=== PATIENT | male | born 1940 | race Caucasian/White ===

== ENCOUNTER → 2017-01-13 | Outpatient (CLI) | payer OTHER ==
[~2017-01-13] MED LIST: CALCTAB5 PO
[2017-01-13 14:13] LABS: THYROID STIMULATING HORMONE 0.996 uIu/ml (0.300-4.500)
== END | disposition home or self-care (01) ==
LOC: C.LABSPEC 12:28
PROVIDERS: ATTEND Internal Medicine
DX: E03.9 Hypothyroidism, unspecified (principal)

== ENCOUNTER → 2017-10-09 | Outpatient (CLI) | payer OTHER ==
[2017-10-09 13:40] LABS: BASO % 0.3 %; BASO ABS # 0.02 K/uL (0-0.2); COMPLETE YES; EOS % 2.1 %; IG% 0.3 %; LYMPH % 30.5 %; LYMPH ABS # 2.13 K/uL (1.2-3.4); MEAN CELL VOLUME 93.7 fL (80-100); MEAN CORPUSCULAR HEMOGLOBIN 31.8 pg (25-34); MEAN PLATELET VOLUME 12.4 fL (7.4-10.4); MONO % 9.3 %; NEUT % 57.5 %; PLATELET COUNT 164 K/uL (130-400); RED BLOOD COUNT 4.59 M/uL (4.7-6.1); WHITE BLOOD COUNT 6.99 K/uL (4.8-10.8)
[2017-10-09 14:06] LABS: ALT/SGPT 27 U/L (12-78); AST/SGOT 16 U/L (15-37); BLOOD UREA NITROGEN 22 mg/dl (7-18); BUN/CREATININE RATIO 17.8 (10-20); CALCIUM 8.5 mg/dl (8.5-10.1); CARBON DIOXIDE 26 mmol/L (21-32); CHLORIDE 106 mmol/L (98-107); CREATININE 1.22 mg/dl (0.60-1.40); GLUCOSE 93 mg/dl (70-99); POTASSIUM 4.6 mmol/L (3.5-5.1); SODIUM 136 mmol/L (136-145)
[2017-10-09 14:18] LABS: ALB/GLOB RATIO 0.9 (0.9-2); ALKALINE PHOSPHATASE 93 U/L (45-117)
== END | disposition home or self-care (01) ==
LOC: C.LABSPEC 12:31
PROVIDERS: ATTEND Internal Medicine
DX: E03.9 Hypothyroidism, unspecified (principal); R42 Dizziness and giddiness

== ENCOUNTER → 2017-10-10 | Outpatient (CLI) | payer OTHER, MEDICARE ==
--- NOTE | 2017-10-10 14:25 | DIAGNOSTIC IMAGING REPORT ---
ULTRASOUND OF THE CAROTID ARTERIES CLINICAL HISTORY: Dizziness. COMPARISON STUDY: No priors. TECHNIQUE: Real-time, grayscale, and color Doppler sonography of the carotid arteries is performed. Images are reviewed in the transverse and longitudinal planes. FINDINGS: Blood pressure in the right arm measures 143/79 and blood pressure in the left arm measures 142/86. The carotid arteries are patent bilaterally and demonstrate antegrade flow. There is no significant atherosclerotic plaque seen. Normal doppler arterial waveforms are seen throughout. Velocity measurements are listed below. Common carotid peak systolic velocity (cm/sec): RIGHT: 84 LEFT: 82 ICA proximal peak systolic velocity (cm/sec): RIGHT: 58 LEFT: 46 ICA mid peak systolic velocity (cm/sec): RIGHT: 46 LEFT: 53 ICA distal peak systolic velocity (cm/sec): RIGHT: 48 LEFT: 46 ICA/CC peak systolic ratio: RIGHT: 0.7 LEFT: 0.6 Antegrade flow was shown in the vertebral arteries. The external carotid arteries are patent. IMPRESSION: 1. There is no sonographic evidence of hemodynamically significant stenosis in the right or left carotid arterial system. 2. Antegrade flow is shown in the vertebral arteries. Electronically signed by: Gómez Younger M.D. 10/10/2017 2:24 PM Dictated Date/Time: 10/10/2017 2:21 PM
== END | disposition home or self-care (01) ==
LOC: C.ULTR 13:32
PROVIDERS: ATTEND Internal Medicine
DX: R42 Dizziness and giddiness (principal)

== ENCOUNTER → 2018-01-29 | Outpatient (CLI) | payer OTHER, MEDICARE ==
--- NOTE | 2018-01-29 12:18 | DIAGNOSTIC IMAGING REPORT ---
C-SPINE ROUTINE 4 OR 5 VIEWS CLINICAL HISTORY: R SIDED NECK PAIN COMPARISON STUDY: No previous studies for comparison. FINDINGS: Alignment of the cervical spine is anatomic. Vertebral body heights are maintained. There is no fracture or suspicious lesion. There is mild disc space narrowing with moderate osteophytosis at C6-C7. There is moderate multilevel facet arthrosis. IMPRESSION: 1. No cervical spine fracture or subluxation. 2. Moderate multilevel facet arthrosis and mild to moderate multilevel degenerative disc disease. Electronically signed by: Quincy John M.D. 01/29/2018 12:17 PM Dictated Date/Time: 01/29/2018 12:16 PM
== END | disposition home or self-care (01) ==
LOC: C.RAD 11:31
PROVIDERS: ATTEND Internal Medicine
DX: M54.2 Cervicalgia (principal)

== ENCOUNTER 2023-05-02 09:28 | Observation (INO) ==
--- NOTE | 2023-04-09 13:27 | PAT Medication Instructions ---
Medication Instructions Date of Service April 09, 2023 Home Medications ferrous gluconate 324 mg (37.5 mg iron) tablet 324 mg PO QAM gabapentin 100 mg capsule 100 mg PO TID levothyroxine 75 mcg capsule 75 mcg PO QAM omeprazole 20 mg capsule,delayed release 20 mg PO QAM tamsulosin 0.4 mg capsule 0.4 mg PO QAM docusate sodium 50 mg capsule (Stool Softener) 50 mg PO QAM multivitamin 1 tab PO QAM DO NOT take the morning of surgery docusate sodium 50 mg capsule (Stool Softener) 50 mg PO QAM multivitamin 1 tab PO QAM ferrous gluconate 324 mg (37.5 mg iron) tablet 324 mg PO QAM Take morning of surgery With a small sip of water, OTHERWISE NOTHING TO EAT OR DRINK AFTER MIDNIGHT: gabapentin 100 mg capsule 100 mg PO TID levothyroxine 75 mcg capsule 75 mcg PO QAM omeprazole 20 mg capsule,delayed release 20 mg PO QAM tamsulosin 0.4 mg capsule 0.4 mg PO QAM Take evening before surgery gabapentin 100 mg capsule 100 mg PO TID Other Notes If you have any questions please call us at [phone] or [phone] or [phone] or [phone]
--- NOTE | 2023-04-14 09:13 | Anesthesiology Consultation ---
Date of Service April 14, 2023 Assessment & Plan (1) Encounter for pre-operative examination: - COVID screening: Per assessment on 04/14: No known COVID-19 positive contacts or current COVID-19 related symptoms. Travel screen negative. Patient vaccinated. At surgeon discretion if preop Covid testing being done. - Outpatient joint assessment: Pt currently scheduled for inpatient pathway. If surgeon requests review for outpatient joint pathway, patient is not recommended candidate for outpatient joint program from anesthesia standpoint. Chart Review Chart Review: Acceptable Risk for Surgery and Patient seen in Pre Admission Testing Teaching & Discussion Pre-Anesthesia Teaching/Discussion Notes: Instructed NPO after midnight before surgery,except medications with 15 cc of water. Medication instructions provided according to the PAT guidelines. History Surgery Operation Date: 05/02/23 12:30 Proposed Procedures p Left Total Knee Arthroplasty - Fred Del Toro MD Height/Weight Height: 5 ft 11 in Weight: 76 kg Allergies Allergy/AdvReac Type Severity Reaction Status Date / Time No Known Allergies Allergy Verified 04/09/23 12:10 Medications Home Medications Medication Instructions Recorded Confirmed Last Taken ferrous gluconate 324 mg (37.5 mg 324 mg PO QAM 04/26/20 04/09/23 Unknown iron) tablet gabapentin 100 mg capsule 100 mg PO TID 04/26/20 04/09/23 Unknown levothyroxine 75 mcg capsule 75 mcg PO QAM 04/26/20 04/09/23 Unknown omeprazole 20 mg capsule,delayed 20 mg PO QAM 04/26/20 04/09/23 Unknown release tamsulosin 0.4 mg capsule 0.4 mg PO QAM 04/26/20 04/09/23 Unknown docusate sodium 50 mg capsule 50 mg PO QAM 04/09/23 04/09/23 Unknown (Stool Softener) multivitamin 1 tab PO QAM 04/09/23 04/09/23 Unknown Past Medical History Medical History Arthritis BPH (benign prostatic hyperplasia) GERD (gastroesophageal reflux disease) Hypothyroidism Kidney stones Neuropathy feet Osteoarthritis of knees, bilateral Exercise / Class Metabolic Activity III < 4 Walking/Shop/Light housework Past Family History Family History Unknown No pertinent family history Other No family history of adverse response to anesthesia Past Surgical History Surgical History Hx of bilateral cataract extraction Hx of colonoscopy Past Anesthesia History No Hx of Anesthesia Complications and No Family Hx of Anesthesia Complications History of PONV No Hx of PONV and No Hx of Motion Sickness Social History Smoking Status: Never smoker Do You Dip or Chew Tobacco: No Hx Alcohol Use: No Hx Substance Use: No substance use type: does not use Review of Systems Patient denies chest pain, shortness of breath, fever, chills, cough, wheezing, palpitations. Physical Exam Vital Signs VITALS BP 126/77 P 60 TEMP 97.4 SP02 98%RA RESP 16 PHYSICAL Full cervical extension range of motion. Full TMJ range of motion. TMD 3 finger breaths Mallampati Score 3 Dentition: several missing sides/molars Lungs: clear throughout to auscultation Cardiac: regular rate and rhythm, no murmurs noted Spine: normal Carotid arteries: negative bruit Extremities: no LE edema Lab Results Anesthesia Preop Results Results Anesthesia Widget: WBC 6.27 K/ul (4.8-10.8) 04/14/23 Hgb 13.7 g/dl (14.0-18.0) L 04/14/23 Hct 40.2 % (42.0-52.0) L 04/14/23 Plt 152 K/uL (130-400) 04/14/23 Na 137 mmol/L (136-145) 04/14/23 K 4.2 mmol/L (3.5-5.1) 04/14/23 Cl 107 mmol/L (98-107) 04/14/23 CO2 28 mmol/L (21-32) 04/14/23 BUN 28 mg/dl (6-23) H 04/14/23 Creat 1.05 mg/dl (0.6-1.4) 04/14/23 Glucose Level 94 mg/dl (70-99(Fasting)) 04/14/23 PT 10.9 Seconds (9.0-12.0) 04/14/23 PTT 26.6 Seconds (21.0-31.0) 04/14/23 INR 1.0 (0.9-1.1) 04/14/23 Blood Type O Negative 04/14/23 Antibody Screen NEGATIVE 04/14/23 Testing Electrocardiogram Date: 04/14/23 SB at 56bpm. Otherwise normal ECG. No significant change compared to 07/12/2007 per savings counselor comparison. Chest X-Ray Date: 04/14/23 FINDINGS: Cardiomediastinal and hilar silhouettes are within normal limits. No pneumothorax, pleural effusion, airspace consolidation or pulmonary edema. Degenerative changes of the shoulders and spine. IMPRESSION: No acute process. Stress Test Date: 10/28/18 Type: exercise Normal Exercise echocardiogram without evidence of inducible ischemia. Borderline concentric LVH. Grade 1 diastolic dysfunction. RVSP normal. 10.10 METS. 105% MPHR. COVID-19 Risk Screen Screening Information COVID-19 Screen Date: 04/14/23 Exposure 21 Days Family/Household +COVID Last 21 Days: No Exposure 10 Days Any COVID Exposure Last 10 Days: No Symptoms Last 10 Days Experienced COVID Sx Last 10 Days: No + COVID 0-90 Days COVID + in Last 0-90 Days: No
[~2023-05-02 09:28] MED LIST changes: +ACETAMINOPHEN 500 MG TAB PO SCH; +BUPIVACAINE 0.5 % 5 MG/1 ML PF 10ML VIAL ONE; +BUPIVACAINE LIPOSOME/PF 266 MG, BUPIVACAINE/EPINEPHRINE 50 ML, SODIUM CHLORIDE 0.9% PF ... INFIL SCH; -CALCTAB5 PO; +CeleBREX 200 MG CAP PO SCH; +EPINEPHrine INJ 1 MG/ML AMP ONE; +FAMOTIDINE 20 MG TAB PO SCH; +LR 500ML BOLUS, THEN 15ML/HR IV SCH; +LR 60ML/HR IV SCH; +METOCLOPRAMIDE HCL 10 MG TABLET PO SCH; +ROPIVACAINE 0.5% 5 MG/ML 30 ML VIAL ONE; +TRANEXAMIC ACID 1,000 MG **IV Intra-op IV SCH; +ceFAZolin 2000MG 2,000 MG/15 ML SYR IV SCH; +dexAMETHasone**PF** 10 MG/ML VIAL IV SCH
--- NOTE | 2023-05-02 11:13 | History & Physical Bridge Note ---
Date of Service May 02, 2023 History & Physical Bridge Note I have examined the patient, reviewed the History & Physical and in the interval since the performance of the History & Physical I have noted the following changes of clinical significance: no changes noted
[2023-05-02] MEDS ORDERED: ONDANSETRON INJ 2 MG/ML 2 ML VIAL ONE (11:58)
[2023-05-02] MEDS ORDERED: PROPOFOL IV EMULSION 10 MG/ML 20 ML VIAL IV ONE (11:58)
[2023-05-02] MEDS ORDERED: fentaNYL citrate PF 100 MCG/2 ML VIAL ONE (11:59)
[2023-05-02] MEDS ORDERED: MIDAZOLAM HCL 1 MG/ML 2ML VIAL ONE (11:59)
[2023-05-02] MEDS ORDERED: BUPIVACAINE/EPINEPHRINE 0.25% 1:200,000 30 ML VIAL ONE (13:14)
[2023-05-02] MEDS ORDERED: SODIUM CHLORIDE 0.9% PF 50 ML VIAL ONE (13:15)
[2023-05-02] MEDS ORDERED: BUPIVACAINE LIPOSOME 1.3% 266 MG/20 ML VIAL ONE (13:15)
[2023-05-02] MEDS ORDERED: ePHEDrine sulfate 50 MG/ML AMP ONE (13:37)
--- NOTE | 2023-05-02 15:18 | Operative Report ---
PG Post Operative Report Pre & Post Diagnosis Operation Date: 05/02/23 12:00 Pre-Op Diagnosis: Osteoarthritis of Left Knee Post-Op Diagnosis: Osteoarthritis of Left Knee I identified the patient and participated in the time-out.: Yes Procedure Operation Date: 05/02/23 12:00 Actual Procedures p Left Total Knee Arthroplasty(Left) - Fred Del Toro MD Surgeon Fred Del Toro MD Manager Of Medical Farooq Moise PA-C Estimated Blood Loss 50 Findings Consistent with Post-Op Diagnosis Operative [id number] advanced left knee medial and patellofemoral compartment arthritis with grade 4 [id number] disease in both areas. He had a varus deformity to his knee and a moderate-sized knee joint effusion. Specimens Left knee sent for pathology Anesthesia Type Spinal MAC Complications none Disposition Accompanied Patient To Recovery: No Indications Patient is an 83-year-old gentleman said a long history of left knee pain discomfort describes gotten worse over time. Failed conservative measures. X- rays show advanced medial and patellofemoral compartment arthritis. He elected proceed with surgical treatment. Description of Procedure Operative implants consist of: 1. Biomet Vanguard size 72.5 left posterior stabilized femoral component. 2. Biomet size 79 tibial tray. 3. 10 mm posterior stabilized polyethylene insert. 4. 31 x 8 all poly patella. The patient was taken the operating, identified, placed on the operating table supine position. All contractors were appropriately padded. IV antibiotics were provided by anesthesia team. A spinal anesthetic and abductor canal block had provided in the holding area. A left thigh turn was then placed in the left lower extremities then prepped and draped in usual sterile fashion. The left leg was elevated and exsanguinated with use of an Esmarch and the tourniquet was placed at 300 mmHg. An anterior approach left knee was then performed to longitudinal incision centered over the patella. Sharp dissection was carried through subcutaneous tissue down the extensor mechanism. A medial parapatellar arthrotomy incision was made. Some subperiosteal dissection was carried out medially. The fat pad was resected from Neath patella tendon. Lateral patellofemoral ligament was released. Patella subluxated laterally and the knee was flexed. The osteophytes taken off distal femur. The ACL and PCL were then released from distal femur the tibia subluxated anteriorly. The external tibial alignment jig was then placed in the interface the tibia and adjusted 14 mm medially. Proximal tibial cut was made remove about a millimeter or 2 of bone for the most deficient aspect medial tibial plateau. The tibia sized to a size 79. Attention drawn the femur. The distal femur was entered with a sharp drill. The intramedullary canal was suction. A left 5 degree valgus cutting guide was placed. Distal femoral cutting block was pinned in place. The distal femoral cut was made to take an additional 3 mm of bone off distal femur. The femur was then sized to a size 72.5. The AP cutting block was pinned parallel to the epicondylar axis which was 5 degrees of external rotation. The anterior cut, anterior chamfer, posterior cut, posterior chamfer cuts were made. The box cutting guide was placed in a just slight lateral and the box cut was made. The knee was flexed. The remnants of the medial and lateral menisci were excised. The osteophytes taken off the posterior aspect of femur. A trial femoral component was placed. The tibial tray was pinned in maximum external rotation and the drill and stem punch were used to create defect in proximal tibia for the tibial tray. The knee was then trialed and the 10 mm insert fit most appropriately. Attention drawn the patella. The patella was cleaned of all soft tissues. Patella thickness measured 23 mm in thickness was cut down to 14. Was sized to a size 31 patella. The lug holes were drilled for 31 patella. The lateral osteophytes removed. Patella button was placed. Knee was taken through range of motion patella tracked nicely with no thumbs test. Attention drawn to place the permanent components. All trial components were removed. A bone plug was placed in the distal femur limit blood loss. Double batch Palacos G cement was mixed. Biomet Vanguard size 72.5 left posterior stabilized femoral component, a size 79 tibial tray, a 10 mm posterior stabilized polyethylene insert, and a 31 x 8 all poly patella then cemented in place. Knee was brought into full extension till cement hardened. Final cement check was then performed. Pericapsular tissues were injected with total of 100 cc of combination of 20 cc of Exparel, 30 cc normal saline, 50 cc of quarter percent Marcaine with epinephrine. Patient did receive 1 g tranexamic acid. The tourniquet was then let down for final tourniquet time 53 minutes. Hemostasis assured with electrocautery. Extensor mechanism then closed with combination 1 PDS suture #1 Vicryl suture in a [id number]-yq-payve fashion. Extensor mechanism checked found to be intact the subcutaneous tissues then closed with 2 Dexon suture in a buried interrupted fashion skin was closed skin laura. Leg was then cleaned and dried and sterile dressed with Xeroform, 4 x 4's, sterile cast padding, Dane bandage were applied. Patient then transferred to the recovery room in stable condition. Patient tolerated procedure well and there were no complications. Farooq Moise, my physician resident programs assistant, was present for the entire procedure. His assistance was essential and required for appropriate patient positioning, prepping and draping, surgical exposure, performing the technical details of the operation, placement the implants, closure of the wound, and placement of the sterile bandage. I attest to the content of the Intraoperative Record and any orders documented therein. Any exceptions are noted below.
--- NOTE | 2023-05-02 16:35 | Anesthesiology Progress Note ---
Date of Service May 02, 2023 Anesthesia Post Procedure Vital Signs Vital Signs: Temp Pulse Resp BP Pulse Ox O2 Del Method O2 Flow Rate 05/02/23 16:30 36.4 C L 76 14 134/78 93 Room Air 05/02/23 16:20 79 14 133/70 94 Room Air 05/02/23 16:10 75 14 135/70 94 Room Air 05/02/23 16:00 75 14 140/71 94 Room Air 05/02/23 15:50 74 14 131/70 93 Room Air 05/02/23 15:40 84 14 146/84 H 94 Room Air 05/02/23 15:30 88 20 129/64 95 Room Air 05/02/23 15:20 93 H 18 130/72 97 Room Air 05/02/23 15:10 36.0 C L 98 H 18 111/64 95 Oxymask 6 Transfer of Care Handoff Completed per policy Notes Mental Status: alert / awake / arousable Patient Amnestic to Procedure: Yes Nausea / Vomiting: adequately controlled Pain: adequately controlled Airway Patency, RR, SpO2: stable & adequate BP & HR: stable & adequate Hydration State: stable & adequate Neuraxial Anesthesia: was administered and sensory block is resolving Anesthetic Complications: no major complications apparent
[2023-05-02] MEDS ORDERED: ALUMINUM/MAGNESIUM SUSP 30 ML UDC PO PRN (16:47)
[2023-05-02] MEDS ORDERED: HYDROmorphone INJ 0.5 MG/0.5 ML SYR IV PRN (16:47)
[2023-05-02] MEDS ORDERED: bisacodyL 10 MG SUPP PR PRN (16:47)
[2023-05-02] MEDS ORDERED: MAGNESIUM HYDROXIDE SUSP 30 ML UDC PO PRN (16:47)
[2023-05-02] MEDS ORDERED: ONDANSETRON INJ 2 MG/ML 2 ML VIAL IV PRN (16:47)
[2023-05-02] MEDS ORDERED: NALOXONE HCL 0.4 MG/1 ML VIAL/CARP IV PRN (16:47)
[2023-05-02] MEDS ORDERED: METOCLOPRAMIDE HCL INJ 5 MG/ML 2 ML VIAL IV PRN (16:47)
[2023-05-02] MEDS ORDERED: oxyCODONE HCL IR 5 MG TAB (IMMEDIATE RELEASE) PO PRN (16:47)
[2023-05-02] MEDS: SODIUM CHLORIDE 0.9% 1000ML 1,000 ML IV SCH (16:50)
[2023-05-02] MEDS: KETOROLAC TROMETHAMINE 15 MG/ML VIAL IV SCH (17:27)
[2023-05-02] MEDS: ASCORBIC ACID 500 MG TAB PO SCH (17:33)
--- NOTE | 2023-05-02 17:49 | XRay Report ---
TWO VIEWS LEFT KNEE CLINICAL HISTORY: Postoperative examination. FINDINGS: AP and crosstable lateral portable views of the left knee are obtained. A left knee arthrop lasty is in near anatomic alignment. There has been undersurface remodeling of the patella. No acute fracture is seen. There are expected postoperative changes around the knee including skin clips, soft tissue edema, and subcutaneous gas. IMPRESSION: Expected postoperative changes status post left knee arthroplasty. No acute fracture is s een. ACT 112: Negative or not required by law. Electronically signed by: Gómez Younger M.D. 05/02/2023 5:48 PM
[2023-05-02] MEDS: GABAPENTIN 100 MG CAP PO SCH (19:54)
[2023-05-02] MEDS: ASPIRIN 81 MG ECTAB PO SCH (19:54)
[2023-05-02] MEDS: SENNA 8.6 MG TAB PO SCH (19:55)
[2023-05-02] MEDS: ACETAMINOPHEN 500 MG TAB PO SCH (19:55)
[2023-05-02] MEDS: DOCUSATE SODIUM 100 MG CAP PO SCH (19:57)
[2023-05-02] MEDS: ceFAZolin 1000MG 1,000 MG/7.5 ML SYR IV SCH (20:18)
[2023-05-02] MEDS ORDERED: SENNA 8.6 MG TAB PO SCH (21:00)
[2023-05-02] MEDS ORDERED: TRANEXAMIC ACID / 0.7% NACL 1,000 MG/100 ML BAG IV SCH (21:15)
[2023-05-03] MEDS: KETOROLAC TROMETHAMINE 15 MG/ML VIAL IV SCH ×3 (00:10→12:37)
[2023-05-03] MEDS: ceFAZolin 1000MG 1,000 MG/7.5 ML SYR IV SCH (05:39)
[2023-05-03] MEDS: SODIUM CHLORIDE 0.9% 1000ML 1,000 ML IV SCH (06:01)
[2023-05-03 06:15] LABS: Hematocrit (blood only) 34.3 % (42.0-52.0); Hemoglobin 12.1 g/dl (14.0-18.0); Mean Corpuscular Hemoglobin 32.5 pg (25.0-34.0); Mean Corpuscular Hgb Conc 35.3 g/dL (32.0-36.0); Mean Corpuscular Volume 92.2 fL (80.0-100.0); Mean Platelet Volume 12.3 fL (9.4-12.4); Platelet Count 141 K/uL (130-400); RDW Coefficient of Variation 14.5 % (11.5-14.5); RDW Standard Deviation 49.1 fL (36.4-46.3); Red Blood Count 3.72 M/uL (4.70-6.10); White Blood Count 13.76 K/ul (4.8-10.8)
[2023-05-03 06:21] LABS: Calcium 8.6 mg/dl (8.6-10.3); Creatinine Clr Calc Pharmacy 50.5 ml/min; Est GFR (African American) 64.9 ml/min; Potassium 4.3 mmol/L (3.5-5.1)
[2023-05-03] MEDS ORDERED: LEVOTHYROXINE SODIUM 75 MCG TABLET PO SCH (06:30)
[2023-05-03] MEDS ORDERED: dexAMETHasone 10 MG in SYRINGE 0 ML IV SCH (08:00)
[2023-05-03] MEDS: ACETAMINOPHEN 500 MG TAB PO SCH (08:20)
[2023-05-03] MEDS: ASCORBIC ACID 500 MG TAB PO SCH (08:20)
[2023-05-03] MEDS: ASPIRIN 81 MG ECTAB PO SCH (08:21)
[2023-05-03] MEDS: GABAPENTIN 100 MG CAP PO SCH (08:22)
[2023-05-03] MEDS: SENNA 8.6 MG TAB PO SCH (08:23)
[2023-05-03] MEDS: DOCUSATE SODIUM 100 MG CAP PO SCH (08:37)
--- NOTE | 2023-05-03 08:46 | Progress Notes ---
DATE OF SERVICE: 05/03/2023. SUBJECTIVE: An 83-year-old gentleman, postoperative day 1 from left knee replacement. He is doing w ell. Denies any significant pain. He has been getting up and walk around. He is hoping to go home. No chest pain or shortness of breath. Not feeling dizzy or lightheaded. OBJECTIVE: VITAL SIGNS: Temperature 36.8. Vital signs are stable. GENERAL: Shows a pleasant, elderly male. He is sitting on his bedside chair, talking to some family . He is awake, alert and oriented. LUNGS: Clear to auscultation. HEART: Regular rate and rhythm. ABDOMEN: Soft, nontender, nondistended. EXTREMITIES: Grossly neurovascularly intact except as follows. Examination of the left leg reveals the dressing to be clean, dry and intact. He can do a good strai ght leg raise. Range of motion is 0 to about 105 degrees. Moves his leg around very easily. Excell ent control. LABORATORY DATA: Hemoglobin 12.1. Hematocrit 34.3. Electrolytes are stable. ASSESSMENT: An 83-year-old gentleman, postoperative day 1, doing quite well. He is neurologically intact. PLAN: 1. DVT prophylaxis includes thigh-high TEDs, SCDs, and aspirin twice a day. 2. PT/OT, weightbear as tolerated. Left total knee protocol. 3. Pain control, doing well with current pain regimen. 4. Disposition: Plan to discharge to home. He has got some home health. He has done remarkably we ll. Job ID: [id number]
[2023-05-03] MEDS ORDERED: PANTOprazole 40 MG TAB PO SCH (09:00)
[2023-05-03] MEDS ORDERED: MULTIVITAMIN TAB PO SCH (09:00)
[2023-05-03] MEDS ORDERED: DOCUSATE SODIUM 100 MG CAP PO SCH (09:00)
[2023-05-03] MEDS ORDERED: TAMSULOSIN HCL 0.4 MG CAP PO SCH (09:00)
[2023-05-03] MEDS ORDERED: NON-FORMULARY MEDICATION (Multivitamin Tablet) PO SCH (09:00)
[2023-05-03] MEDS ORDERED: FERROUS GLUCONATE 324 MG TAB PO SCH (09:00)
== END 2023-05-03 13:34 | disposition home health service (06) ==
LOC: 3E 09:28 → ASU 09:28

== ENCOUNTER 2023-12-02 09:41 | Observation (INO) ==
--- NOTE | 2023-11-19 14:07 | Anesthesiology Consultation ---
Date of Service November 19, 2023 Assessment & Plan (1) Encounter for pre-operative examination: Chart Review Chart Review: Acceptable Risk for Surgery and Patient NOT seen in Pre Admission Testing - Patient is NOT an ideal OPJ candidate -Infectious Disease screening: Per PAT nursing assessment on 11/19/23. No known infectious disease contacts in past 10 days or current infectious disease symptoms. No recent travel outside the country. Left TKA 05/02/23= Done under SAB at L3-4 with 1 attempt. History Surgery Operation Date: 12/02/23 13:10 Proposed Procedures p Right Total Knee Arthroplasty - Fred Del Toro MD Height/Weight Height: 5 ft 11 in Weight: 78.018 kg Allergies Allergy/AdvReac Type Severity Reaction Status Date / Time amoxicillin AdvReac Mild Diarrhea Verified 11/19/23 13:08 Medications Home Medications Medication Instructions Recorded Confirmed Last Taken ferrous gluconate 324 mg (37.5 mg 324 mg PO QAM 04/26/20 11/19/23 05/01/23 12:00 iron) tablet gabapentin 100 mg capsule 100 mg PO TID 04/26/20 11/19/23 05/02/23 06:00 1 tab levothyroxine 75 mcg capsule 75 mcg PO QAM 04/26/20 11/19/23 05/02/23 06:00 omeprazole 20 mg capsule,delayed 20 mg PO QAM 04/26/20 11/19/23 05/02/23 06:00 release tamsulosin 0.4 mg capsule 0.4 mg PO BID 04/26/20 11/19/23 05/02/23 06:00 docusate sodium 50 mg capsule 50 mg PO QAM 04/09/23 11/19/23 05/01/23 06:00 (Stool Softener) multivitamin 1 tab PO QAM 04/09/23 11/19/23 05/01/23 06:00 Wheeled Walker #1 ea 05/09/23 Unknown Past Medical History Medical History Neuropathy feet BPH (benign prostatic hyperplasia) Hypothyroidism GERD (gastroesophageal reflux disease) Osteoarthritis of knees, bilateral Kidney stones Arthritis Past Family History Family History Unknown No pertinent family history Other No family history of adverse response to anesthesia Past Surgical History Surgical History (Updated 11/19/23 @ 14:05 by Sonya Golden PA-C) History of total left knee replacement (TKR) Left TKA 05/02/23= Done under SAB at L3-4 with 1 attempt. Hx of bilateral cataract extraction Hx of colonoscopy Social History Smoking Status: Never smoker Do You Dip or Chew Tobacco: No Hx Alcohol Use: No Hx Substance Use: No substance use type: does not use Lab Results Anesthesia Preop Results Results Anesthesia Widget: WBC 8.32 K/ul (4.8-10.8) 11/05/23 Hgb 14.0 g/dl (14.0-18.0) 11/05/23 Hct 41.6 % (42.0-52.0) L 11/05/23 Plt 152 K/uL (130-400) 11/05/23 Na 138 mmol/L (136-145) 11/05/23 K 4.1 mmol/L (3.5-5.1) 11/05/23 Cl 105 mmol/L (98-107) 11/05/23 CO2 27 mmol/L (21-32) 11/05/23 BUN 23 mg/dl (6-23) 11/05/23 Creat 1.05 mg/dl (0.6-1.4) 11/05/23 Glucose Level 89 mg/dl (70-99(Fasting)) 11/05/23 PT 11.1 Seconds (9.0-12.0) 11/05/23 PTT 29 Seconds (21-31) 11/05/23 INR 1.0 (0.9-1.1) 11/05/23 Blood Type O Negative 11/05/23 Antibody Screen NEGATIVE 11/05/23 Testing Electrocardiogram Date: 04/14/23 SB at 56bpm. Otherwise normal ECG. No significant change compared to 07/12/2007 per c web developer comparison. Chest X-Ray Date: 04/14/23 FINDINGS: Cardiomediastinal and hilar silhouettes are within normal limits. No pneumothorax, pleural effusion, airspace consolidation or pulmonary edema. Degenerative changes of the shoulders and spine. IMPRESSION: No acute process. Stress Test Date: 10/28/18 Type: exercise Normal Exercise echocardiogram without evidence of inducible ischemia. Borderline concentric LVH. Grade 1 diastolic dysfunction. RVSP normal. 10.10 METS. 105% MPHR.
--- NOTE | 2023-11-28 14:49 | History & Physical Report ---
Date of Service November 28, 2023 Assessment & Plan (1) Osteoarthritis of right knee: 83-year-old gentleman status post left knee replacement with the right knee DJD. He is failed conservative measures. He is happy with the left knee and would like to have his right knee replaced. He does have primarily patellofemoral arthritis which is a little bit less predictably treated with knee replacement. Plan: We discussed treatment options. He is happy with his left knee. He like to proceed with right knee replacement. Will take the operative right total knee replacement for the risks Mente this procedure planed the patient and include but not limited to deep VT, PE, NH, , infection, need for further surgery in future, incomplete relief of symptoms etc. The patient understands and desires to proceed. Informed consent was obtained. He is hoping to do this after . He does have a trip coming up in January they be better for her. Will do our best to get him better by then. Plan on DVT prophylaxis including thigh-high teds, SCDs, aspirin twice a day. (2) Status post total left knee replacement: History of Present Illness Chief Complaint: . Persistent right knee pain and discomfort. Primary Care Provider: Fran Ge MD . Patient is an 83-year-old gentleman who presents for follow-up of his knees. He is now about 7 months out from a left knee replacement doing well. He continues to be bothered by right knee pain and discomfort. Describes global pain. The more he is up and onto more it hurts. He is having more more difficulty doing things he enjoys like hunting up. He has an upcoming trip in January and he like to have his knee better by then. Describes global pain. Does swells more as the day goes on. Some nighttime discomfort. Allergies Allergy/AdvReac Type Severity Reaction Status Date / Time amoxicillin AdvReac Mild Diarrhea Verified 11/19/23 13:08 Home Medications Medication Instructions Recorded Confirmed Type ferrous gluconate 324 mg (37.5 mg 324 mg PO QAM 04/26/20 11/19/23 History iron) tablet gabapentin 100 mg capsule 100 mg PO TID 04/26/20 11/19/23 History levothyroxine 75 mcg capsule 75 mcg PO QAM 04/26/20 11/19/23 History omeprazole 20 mg capsule,delayed 20 mg PO QAM 04/26/20 11/19/23 History release tamsulosin 0.4 mg capsule 0.4 mg PO BID 04/26/20 11/19/23 History docusate sodium 50 mg capsule 50 mg PO QAM 04/09/23 11/19/23 History (Stool Softener) multivitamin 1 tab PO QAM 04/09/23 11/19/23 History Wheeled Walker #1 ea 05/09/23 Rx Past Med/Surg History Medical History Neuropathy feet BPH (benign prostatic hyperplasia) Hypothyroidism GERD (gastroesophageal reflux disease) Osteoarthritis of knees, bilateral Kidney stones Arthritis Surgical History History of total left knee replacement (TKR) Left TKA 05/02/23= Done under SAB at L3-4 with 1 attempt. Hx of bilateral cataract extraction Hx of colonoscopy Family History Unknown No pertinent family history Other No family history of adverse response to anesthesia Social History Smoking Status: Never smoker Second Hand Exposure: No; Do You Dip or Chew Tobacco: No; Tobacco Cessation Education Requested by Patient: No Hx Alcohol Use: No Hx Substance Use: No Preferred Language: Honduran Communication Ability: Effective Email Marketing Manager Required: No Beliefs That Will Affect Care: None marital status: Current Living Situation: Spouse current occupational status: retired Other Information That Helps Us Care for You: No Feels Safe at Home: Yes Safety Concerns: Feels Safe At This Time Assistive Devices: Glasses Review of Systems All systems reviewed & are unremarkable except as noted in HPI & below. Physical Exam . Physical examination reveals a pleasant elderly male. Looks younger than his stated age. Examination of both knees with patient ambulates independently. Examination of the right knee reveals a fairly neutral alignment to his knee. Small knee effusion. Range of motion 0-1 25. No pain with hip motion. Does have some patellofemoral crepitance. Examination left knee reveals a well-healed incision. Knee alignment is anatomic. Mild swelling through range of motion 0-1 20. No instability. Constitutional WD/WN, vitals as above Neck trachea midline, no thyromegaly Respiratory normal respiratory effort, lungs clear to auscultation Cardiovascular RRR, no murmur, no edema Gastrointestinal (Abdomen) normal bowel sounds, soft, nontender, no hepatosplenomegaly Results & Data Results & Data Laboratory Results . Diagnostic Findings . X-rays of the right knee were reviewed. It shows moderate to advanced lateral compartment arthritis. He is got advanced patellofemoral disease. PG Care Time/CCT Total # of Minutes Spent Total Time Spent with Patient: Total time spent is greater than 50% in coordination of care (as documented) at patient's floor/unit and/or counseling patient: Coding Level of Care Code None Diagnoses Osteoarthritis of right knee M17.11 Status post total left knee replacement Z96.652
[~2023-12-02 09:41] MED LIST changes: +BUPIVACAINE 0.25% PF 30 ML VIAL ONE; -EPINEPHrine INJ 1 MG/ML AMP ONE; -ROPIVACAINE 0.5% 5 MG/ML 30 ML VIAL ONE; -dexAMETHasone**PF** 10 MG/ML VIAL IV SCH
[2023-12-02] MEDS ORDERED: BUPIVACAINE LIPOSOME 1.3% 266 MG/20 ML VIAL ONE (09:46)
[2023-12-02] MEDS ORDERED: BUPIVACAINE/EPINEPHRINE 0.25% 1:200,000 30 ML VIAL ONE (09:47)
[2023-12-02] MEDS ORDERED: SODIUM CHLORIDE 0.9% PF 50 ML VIAL ONE (09:48)
[2023-12-02] MEDS ORDERED: MIDAZOLAM HCL 1 MG/ML 2ML VIAL ONE (09:59)
[2023-12-02] MEDS ORDERED: fentaNYL citrate PF 100 MCG/2 ML VIAL ONE (09:59)
[2023-12-02] MEDS ORDERED: ONDANSETRON INJ 2 MG/ML 2 ML VIAL IV PRN ×2 (10:43→16:56)
[2023-12-02] MEDS ORDERED: ATROPINE SULFATE 0.1 MG/ML 10ML SYR IV PRN (10:43)
[2023-12-02] MEDS ORDERED: fentaNYL citrate PF 100 MCG/2 ML VIAL IV PRN (10:43)
[2023-12-02] MEDS ORDERED: ePHEDrine sulfate 50 MG/ML AMP IV PRN (10:43)
--- OUTSIDE RECORDS SUMMARY | 2023-12-02 11:53 | External Medical Summary | Continuity of Care Document ---
Author Name Unknown Organization [facility] [address] [facility] [address] [id number] Care Team Providers Care Supervisor Grading Name Role Phone Fran Ge Primary Care Physician [phone] Encounter [facility] [phone] Date(s): 11/20/23 - 11/20/23 [facility] [address] [facility] [address] [phone] Encounter Diagnosis AK (actinic keratosis)(Discharge Diagnosis) - 11/20/23 Seborrheic keratoses(Discharge Diagnosis) - 11/20/23 Compound nevus of multiple sites of trunk(Discharge Diagnosis) - 11/20/23 Asteatosis cutis(Discharge Diagnosis) - 11/20/23 Discharge Disposition: Home or Self Care Attending Physician: MD Connors Thomas A Allergies, Adverse Reactions, Alerts No Known Medication Allergies Substance Reaction Severity Status Hay sneezing Itchy eyes Nasal congestion Active Assessment and Plan Extracted from: Title:Clinical Document Author:MD Dory, Jere Khalil Date:11/20/23 OUTPATIENT NOTE Name: JONI HODGES Jr. Patient Number:1 [id number] : 1940 Date of Service: 11/20/2023 _ Joni Donaldo returns for reevaluation. 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 This continues to be more problem in the winter than in the summer. An actinic keratosis is noted in the presternal area near the sternal notch and was treated with cryotherapy as an actinic keratosis with liquid nitrogen with patient consent. Side effects were discussed. Review of systems medications allergies as noted on the chart. The patient is in stable health. He will be going for knee replacement surgery for the right knee next month. Examination reveals pleasant well-nourished white male type II skin is alert and oriented x 3 with normal mood and affect. Examination of the scalp, head, neck, back, chest, arms, hands, fingers, abdominal area, legs, feet, and toes reveals numerous seborrheic keratoses particularly on the trunk and chest which do not appear atypical, asteatotic change on the arms and legs, otherwise unremarkable. The patient will return in 6 months for reevaluation. Immunizations Given and Recorded Vaccine Date Status Refusal Reason influenza virus vaccine, inactivated 10/30/23 Foreign rded influenza virus vaccine, inactivated 10/21/22 Give n SARS-CoV-2 (COVID-19) mRNA BNT-162b2 vax 1 01/29/21 Recorded SARS-CoV-2 (COVID-19) mRNA BNT-162b2 vax 2 01/08/21 Recorded 1Result Comment: 2022-04-25: Historical information-source unspecified 2Result Comment: 2022-04-25: Historical information-source unspecified Medications Colace Start: 10/30/23 10:30:00 EST, 100 mg =, PO, bid Start Date: 10/30/23 Status: Ordered ferrous gluconate 324 mg (38 mg elemental iron) oral tablet Start: 04/06/13 14:17:00 EDT, 1 tab, PO, several x week Start Date: 04/06/13 Status: Ordered gabapentin 100 mg oral capsule Start: 06/17/23 9:19:00 EDT, See Instructions, Disp# 540 cap, Refills: 3, TAKE 2 CAPSULES BY MOUTH 3 TIMES DAILY, Pharmacy: [facility] ([facility]) Start Date: 06/17/23 Status: Ordered hydrocortisone 2.5% topical cream Start: 02/19/22 8:38:00 EDT, See Instructions, Disp# 60 g, Refills: 2, apply to left thigh until clear, Brand Medically Necessary, Pharmacy: [facility]/pharmacy #[id number] Start Date: 02/19/22 Status: Ordered levothyroxine 75 mcg (0.075 mg) oral tablet Start: 02/21/23 15:09:00 EDT, See Instructions, Disp# 90 tab, Refills: 3, TAKE 1 TABLET BY MOUTH DAILY, Pharmacy: [facility] ([facility]) Start Date: 02/21/23 Status: Ordered multivitamin Start: 02/19/22 8:07:00 EDT, 1 tab, PO, Daily Start Date: 02/19/22 Status: Ordered omeprazole 20 mg oral delayed release capsule Start: 09/08/23 13:04:00 EDT, 1 cap, PO, Daily, Disp# 90 cap, Refills: 4, Pharmacy: [facility] ([facility]) Start Date: 09/08/23 Status: Ordered tamsulosin 0.4 mg oral capsule Start: 07/21/23 8:42:00 EDT, See Instructions, Disp# 180 cap, Refills: 3, TAKE 2 CAPSULES BY MOUTH DAILY, Pharmacy: [facility] ([facility]) Start Date: 07/21/23 Status: Ordered Tylenol Start: 05/28/23 11:27:00 EDT Start Date: 05/28/23 Status: Ordered Vitamin C 500 mg oral tablet Start: 11/30/14 9:59:00, 1 tab, PO, Daily, PRN: Sore Throat Start Date: 11/30/14 Status: Ordered Mental Status 11/20/23 Barriers to Learning one year None evide nt Mandatory Health Literacy Documentation Yes Health Literacy Communication Barriers N ever Primary Language Norwegian Problem List Condition Confirmation Course Effective Dates Status H ealth Status Informant Arthritis of right wrist Confirmed Active Asteatosis Confirmed Active Basal cell carcinoma of skin Confirmed Active BPH without urinary obstruction Confirmed Active GERD Confirmed Active H/O: neoplasm Confirmed Active Hypothyroidism Confirmed Active Neuropathy, peripheral, idiopathic Confirmed Active Iron deficiency anemia Confirmed Active 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 SK (seborrheic keratosis) Confirmed Active Diagnosis Diagnosis Type Effective Dates Health Status Clinical Service Informant AK (actinic keratosis) Discharge Diagnosis 11/20/23 Seborrheic keratoses Discharge Diagnosis 11/20/23 Compound nevus of multiple sites of trunk Discharge Diagnosis 11/20/23 Asteatosis cutis Discharge Diagnosis 11/20/23 Procedures Procedure Date Related Diagnosis Body Site Status Left knee 1 05/01/23 Completed Shave biopsy 2 08/28/22 Completed Colonoscopy 3 07/25/22 Completed Shave biopsy and cauterisati on of skin 4 11/27/18 Completed Shave biopsy and cauterization of skin 07/29/17 Completed Shave biopsy and cauterization of skin 05/02/16 Completed 1total replacement 2right ear lobe 3COLO to TI, 5 mm SF polyp CS, hemorrhoids, 4right extensor forearm Social History Social History Type Response Smoking Status Never smoked cigaret mikel Sex Male Outpatient Note * MD Dory, Gabe Khalil: PERFORM, MODIFY Event Display: .Outpt Note Authored Date: OUTPATIENT NOTE Name: JONI HODGES Jr. Patient Number:1 [id number] : 1940 Date of Service: 11/20/2023 _ Joni Hodges returns for reevaluation. 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 This continues to be more problem in the winter than in the summer. An actinic keratosis is noted in the presternal area near the sternal notch and was treated with cryotherapy as an actinic keratosis with liquid nitrogen with patient consent. Side effects were discussed. Review of systems medications allergies as noted on the chart. The patient is in stable health. He will be going for knee replacement surgery for the right knee next month. Examination reveals pleasant well-nourished white male type II skin is alert and oriented x 3 with normal mood and affect. Examination of the scalp, head, neck, back, chest, arms, hands, fingers, abdominal area, legs, feet, and toes reveals numerous seborrheic keratoses particularly on the trunk and chest which do not appear atypical, asteatotic change on the arms and legs, otherwise unremarkable. The patient will return in 6 months for reevaluation. Electronic Signature on File Electronically Reviewed/Signed by: Gabe Connors MD Author Signature Dt/Tm:11/20/2023 02:15 PM Department of Dermatology [facility] Patient Care team information Care Team Personnel Name: MD Ge [facility] Position: Physician - Family Med Member Role: Primary Care Provider Address: Address: [address] [address] Name: Anders David Position: HIS Supervisor_P Member Role: HIS Lifetime Care Team Related Persons Name: CECY HODGES Address: home [address] [place] [phone]
--- NOTE | 2023-12-02 12:04 | History & Physical Bridge Note ---
Date of Service December 02, 2023 History & Physical Bridge Note I have examined the patient, reviewed the History & Physical and in the interval since the performance of the History & Physical I have noted the following changes of clinical significance: no changes noted
[2023-12-02] MEDS ORDERED: PROPOFOL IV EMULSION 10 MG/ML 20 ML VIAL IV ONE ×2 (12:26→12:31)
[2023-12-02] MEDS ORDERED: ePHEDrine sulfate 50 MG/5 ML SYR ONE (12:44)
--- NOTE | 2023-12-02 14:16 | Operative Report ---
PG Post Operative Report Pre & Post Diagnosis Operation Date: 12/02/23 11:10 Pre-Op Diagnosis: Right Knee Degenerative Joint Disease Post-Op Diagnosis: Right Knee Degenerative Joint Disease I identified the patient and participated in the time-out.: Yes Procedure Operation Date: 12/02/23 11:10 Actual Procedures p Right Total Knee Arthroplasty(Right) - Fred Del Toro MD Surgeon Fred Del Toro MD Central Office Repairer Supervisor Farooq Moise PA-C Estimated Blood Loss 50 Findings Consistent with Post-Op Diagnosis Operative findings reveal advanced right knee DJD. He had extensive grade 4 onow-zi-recl disease in the patellofemoral compartment. He had less severe full-thickness cartilage loss in the lateral compartment. The medial compartment pretty well spared with some age-related changes. Moderate-sized joint effusion. Slight valgus alignment to his knee. Specimens Right knee sent for pathology Anesthesia Type Spinal MAC Complications none Disposition Accompanied Patient To Recovery: No Indications Patient is an 83-year-old gentleman said a long history of bilateral knee pain discomfort describes gotten worse over time. They have been through extensive conservative treatments became less successful. He underwent a left knee replacement about 7 months ago and is done well from this. Continued be limited by right knee pain discomfort. X-rays show advanced patellofemoral and lateral compartment arthritis. He elected proceed with total knee arthroplasty. Description of Procedure Operative implants consist of: 1. Biomet Vanguard size 72.5 right posterior stabilized femoral component. 2. Biomet size 79 tibial tray. 3. 10 mm pro stabilized polyethylene insert. 4. 31 x 8 all poly patella. The patient was taken the operative room, identified, and placed on the operating table in supine position but all contact areas were properly padded. IV antibiotic 5 by anesthesia team. Spinal anesthetic and adductor canal block had been provided in the holding area. Right Tetrick was then placed. The right lower extremities then prepped draped in usual sterile fashion. The right leg was elevated exsanguinated with use of an Esmarch and tourniquet placed at 300 mmHg. An anterior approach to the right knee was then performed to longitudinal incision centered over the patella. Sharp dissection Subcutaneous Tissue down the Extensor Mechanism. A Medial Parapatellar Arthrotomy Incision Was Made. Some Subperiosteal Dissection Was Carried out Medially. The Fat Pad Was Dissected from Neath Patella Tendon. The Lateral Patellofemoral Ligament Was Released. Patella Subluxated Laterally the Knee Was Flexed with the Osteophytes Taken on Distal Femur. ACL PCL Were Then Released from Distal Femur the Tibia Subluxated Anteriorly. The External Tibial Alignment Jig Was Then Placed the Interface the Tibia and Adjusted 12 Mm Medially. Proximal Tibial Cut Was Made Removed 2 to 3 Mm Bone from the Medial Side. Tibia Was Then Sized to a Size 79. We Did Try to Maximize Coverage Due To His Osteopenia. Attention Drawn the Femur. The Distal Femur Examined the Sharp Drop with Intramedullary Canal Was Suction. Right 5 Degree Valgus Cutting Guide Was Placed. This Femoral Cutting Block Was Pinned in Place. This Femoral Cut Was Made to Take an Additional 3 Mm Bone off Distal Femur. The Femur Was Then Sized to a Size 72.5. The AP Cutting Block Was Pinned Parallel to the Epicondylar [place] Which Was 3 Degrees of External Rotation. The Anterior Cut, Anterior Chamfer, Posterior Cut, Posterior Chamfer Cuts Were Made. The Box Cutting Guide Was Placed in Just Slight Lateral and the Box Cut Was Made. The Knee Was Flexed. The Remnants of the Medial and Lateral Menisci Were Excised. The Osteophytes Taken off the Posterior Aspect the Femur. A Trial Femoral Component Was Placed for the Tibial Tray Was Pinned Aarti External Rotation and the Drill and Stem Punch Were Used To Create Defect in Proximal Tibia for the Tibial Tray. The Knee Was Then Trialed and the 10 Mm Insert Fit Most Appropriately. Attention Drawn the Patella. The Patella Is Cleaned of All Soft Tissues. Patella Thickness Measured 23 Mm in Thickness Was Cut down to 14. Was Sized to a Size 31 Patella. The Lug Holes Were Drilled for 31 Patella. The Lateral Osteophytes Removed. Patella Button Was Placed. Knee Was Taken through Range Of Motion Patella Tracked Nicely with No Thumbs Test. Attention Drawn to Place the Permanent Components. Nupathe All Trial Components Were Removed. Bone Plug Was Placed in the Distal Femur Limit Blood Loss. Double Batch [place] G Cement Was Mixed. [email or web address] Size 72.5 Right PostMI Femoral Component, Size 79 Tibial Tray, a 10 Mm Pro Stabilized Polyethylene Insert, and a 31 x 8 All Poly Patella Then Cemented in Place. The Knee Was Brought out into Full Extension till Cement Hardened. Final Cement Check Was Then Performed. Pericapsular Tissues Were Injected with Total of 100 Cc of Combination of 20 Cc of Exparel, 30 Cc Normal Saline, 50 Cc of Quarter Percent Marcaine with Epinephrine. Patient Did Receive 1 G Tranexamic Acid. The Tourniquet Was Then Let down for Final Tourniquet Time 55 Minutes. Hemost asis Reduced Electrocautery. Extensor Meclomen Closed with Combination 1 PDS Suture #1 Vicryl Suture in Exxjqd-Ry-Vlnic Fashion. The Extensor Mechanism Checked Found to Be Intact and Subcutaneous Tissue Then Closed with 2 Dexon Suture in a Buried Interrupted Fashion Skin Was Closed Skin Margareth. Leg Was Then Cleaned and Dried and Sterile Dressing with Xeroform, 4 Fours, Sterile Cast Pain, Dane Bandage Were Applied. Patient Then Transferred to Recovery Room in Stable Condition. Patient Tolerated Procedure Well and There Were No Complications. Farooq Moise, my physician urgent care physician assistant, was present for the entire procedure. His assistance was essential and required for appropriate patient positioning, prepping and draping, surgical exposure, performing the technical details of the operation, placement the implants, closure of the wound, and placement of the sterile bandage. I attest to the content of the Intraoperative Record and any orders documented therein. Any exceptions are noted below.
--- NOTE | 2023-12-02 14:44 | XRay Report ---
XR knee RT 1 or 2V routine HISTORY: 83 years-old Male Surgical Post Op right knee arthroplasty COMPARISON: 06/16/2023 TECHNIQUE: 2 views of the right knee FINDINGS: Total joint arthroplasty with patellar resurfacing. Anterior midline skin laura are present along w ith expected postoperative soft tissue swelling with deep tissue air. Arterial calcifications. No acu te fracture, malalignment or unexpected opaque foreign body. IMPRESSION: Total joint arthroplasty with expected postoperative changes. ACT 112: Negative or not required by law. The above report was generated using voice recognition software. It may contain grammatical, syntax o r spelling errors. Electronically signed by: Francisco Javier Horn M.D. 12/02/2023 2:42 PM
--- NOTE | 2023-12-02 16:31 | Anesthesiology Progress Note ---
Date of Service December 02, 2023 Anesthesia Post Procedure Vital Signs Vital Signs: Temp Pulse Pulse Resp BP Pulse Ox O2 Del Method 12/02/23 16:10 36.4 C L 59 L 15 128/67 98 Nasal Cannula 12/02/23 15:55 59 L 16 131/67 98 Nasal Cannula 12/02/23 15:40 51 L 16 108/71 97 Nasal Cannula 12/02/23 15:25 61 16 113/67 97 Nasal Cannula 12/02/23 15:10 77 16 115/62 95 Room Air 12/02/23 14:55 70 16 114/62 95 Room Air 12/02/23 14:45 36.4 C L 71 16 118/68 95 Room Air 12/02/23 14:35 69 15 120/65 95 Room Air 12/02/23 14:25 73 16 110/61 95 Oxymask 12/02/23 14:15 72 16 110/62 96 Oxymask 12/02/23 14:09 36.2 C L 81 17 103/55 L 94 Oxymask 12/02/23 10:15 Room Air 12/02/23 10:14 36.4 C L 70 18 131/77 94 Room Air O2 Flow Rate 12/02/23 16:10 2 12/02/23 15:55 2 12/02/23 15:40 2 12/02/23 15:25 2 12/02/23 15:10 12/02/23 14:55 12/02/23 14:45 12/02/23 14:35 12/02/23 14:25 5 12/02/23 14:15 5 12/02/23 14:09 5 12/02/23 10:15 12/02/23 10:14 Transfer of Care Handoff Completed per policy Notes Mental Status: alert / awake / arousable and participated in evaluation Patient Amnestic to Procedure: Yes Nausea / Vomiting: adequately controlled Pain: adequately controlled Airway Patency, RR, SpO2: stable & adequate BP & HR: stable & adequate Hydration State: stable & adequate Neuraxial Anesthesia: was administered and sensory block is resolving Anesthetic Complications: no major complications apparent and Pt Satisfied with anesthetic care
[2023-12-02] MEDS ORDERED: oxyCODONE HCL IR 5 MG TAB (IMMEDIATE RELEASE) PO PRN (16:56)
[2023-12-02] MEDS ORDERED: HYDROmorphone INJ 0.5 MG/0.5 ML SYR IV PRN (16:56)
[2023-12-02] MEDS ORDERED: ALUMINUM/MAGNESIUM SUSP 30 ML UDC PO PRN (16:56)
[2023-12-02] MEDS ORDERED: NALOXONE HCL 0.4 MG/1 ML VIAL/CARP IV PRN (16:56)
[2023-12-02] MEDS ORDERED: MAGNESIUM HYDROXIDE SUSP 30 ML UDC PO PRN (16:56)
[2023-12-02] MEDS ORDERED: bisacodyL 10 MG SUPP PR PRN (16:56)
[2023-12-02] MEDS ORDERED: METOCLOPRAMIDE HCL INJ 5 MG/ML 2 ML VIAL IV PRN (16:56)
[2023-12-02] MEDS: SODIUM CHLORIDE 0.9% 1,000 ML IV SCH (17:57)
[2023-12-02] MEDS: ASCORBIC ACID 500 MG TAB PO SCH (17:58)
[2023-12-02] MEDS: KETOROLAC TROMETHAMINE 15 MG/ML VIAL IV SCH ×2 (17:58→23:29)
[2023-12-02] MEDS: TAMSULOSIN HCL 0.4 MG CAP PO SCH (19:56)
[2023-12-02] MEDS: ceFAZolin 2000MG 2,000 MG/15 ML SYR IV SCH (19:57)
[2023-12-02] MEDS: GABAPENTIN 100 MG CAP PO SCH (19:57)
[2023-12-02] MEDS: DOCUSATE SODIUM 100 MG CAP PO SCH (19:58)
[2023-12-02] MEDS: ASPIRIN 81 MG ECTAB PO SCH (19:58)
[2023-12-02] MEDS: ACETAMINOPHEN 500 MG TAB PO SCH (19:59)
[2023-12-02] MEDS ORDERED: TRANEXAMIC ACID / 0.7% NACL 1,000 MG/100 ML BAG IV SCH (20:15)
[2023-12-02] MEDS ORDERED: SENNA 8.6 MG TAB PO SCH ×2 (21:00)
[2023-12-03] MEDS: SODIUM CHLORIDE 0.9% 1,000 ML IV SCH (03:45)
[2023-12-03] MEDS: KETOROLAC TROMETHAMINE 15 MG/ML VIAL IV SCH (05:04)
[2023-12-03] MEDS: ceFAZolin 2000MG 2,000 MG/15 ML SYR IV SCH (05:04)
[2023-12-03] MEDS ORDERED: LEVOTHYROXINE SODIUM 75 MCG TABLET PO SCH (06:30)
[2023-12-03 06:48] LABS: Hematocrit (blood only) 31.8 % (42.0-52.0); Hemoglobin 11.2 g/dl (14.0-18.0); Mean Corpuscular Hemoglobin 31.7 pg (25.0-34.0); Mean Corpuscular Hgb Conc 35.2 g/dL (32.0-36.0); Mean Corpuscular Volume 90.1 fL (80.0-100.0); Mean Platelet Volume 12.2 fL (9.4-12.4); Platelet Count 119 K/uL (130-400); RDW Coefficient of Variation 13.8 % (11.5-14.5); RDW Standard Deviation 45.1 fL (36.4-46.3); Red Blood Count 3.53 M/uL (4.70-6.10); White Blood Count 7.66 K/ul (4.8-10.8)
[2023-12-03 07:28] LABS: BUN Creatinine Ratio 16.5 (10-20); Calcium 7.9 mg/dl (8.6-10.3); Creatinine Clr Calc Pharmacy 47.8 ml/min; Est GFR (African American) 60.6 ml/min; Est GFR (Non-African American) 52.3 ml/min; Potassium 4.2 mmol/L (3.5-5.1)
[2023-12-03] MEDS: DOCUSATE SODIUM 100 MG CAP PO SCH (07:58)
[2023-12-03] MEDS: GABAPENTIN 100 MG CAP PO SCH (07:59)
[2023-12-03] MEDS: ASPIRIN 81 MG ECTAB PO SCH (07:59)
[2023-12-03] MEDS: ACETAMINOPHEN 500 MG TAB PO SCH (08:00)
[2023-12-03] MEDS ORDERED: dexAMETHasone 10 MG in SYRINGE 0 ML IV SCH (08:00)
[2023-12-03] MEDS: ASCORBIC ACID 500 MG TAB PO SCH (08:01)
[2023-12-03] MEDS: TAMSULOSIN HCL 0.4 MG CAP PO SCH (08:02)
[2023-12-03] MEDS ORDERED: PANTOprazole 40 MG TAB PO SCH (09:00)
[2023-12-03] MEDS ORDERED: MULTIVITAMIN TAB PO SCH (09:00)
[2023-12-03] MEDS ORDERED: FERROUS GLUCONATE 324 MG TAB PO SCH (09:00)
[2023-12-03] MEDS ORDERED: NON-FORMULARY MEDICATION (Docusate Sodium [Stool Softener] 50 mg Capsule) PO SCH (09:00)
[2023-12-03] MEDS ORDERED: NON-FORMULARY MEDICATION (Multivitamin Tablet) PO SCH (09:00)
--- NOTE | 2023-12-03 09:02 | Orthopedic Progress Note ---
Date of Service December 03, 2023 Assessment & Plan (1) Status post total right knee replacement: Overall he is doing quite well today with good pain control to the right knee. He will work with physical therapy later this morning to work on ambulation and range of motion exercises. He is on aspirin for DVT prophylaxis. He may be discharged later on today pending physical therapy evaluation. He will follow- up in [address] Del Toro for postoperative care. The patient was seen and examined by myself Fred Del Toro. Patient is doing well. He did well in therapy. His pain is controlled. He is getting around quite well. He is about to be discharged to home. He is can do his own therapy at his request and his Family members to assist in his care. He will follow back with me in 2 weeks. Mateusz Cruz was seen and evaluated at bedside this morning resting comfortably in bed in no apparent distress. He notes that his pain is well-controlled to the right knee. He has been up out of bed and ambulating. He has yet to work with physical therapy yet. He denies any other concerns today. Review of Systems All systems reviewed & are unremarkable except as noted in HPI & below. Physical Exam . On physical examination of the right knee, dressings in place, clean, dry, and intact. His leg is out in full extension. He has active plantarflexion dorsiflexion to the right ankle. +2 DP and PT pulses. Less than 2-second capillary refill. Normal sensation. Neurovascular intact. Results & Data Results & Data Laboratory Results . Diagnostic Findings . Postoperative x-rays of the right knee show the prosthesis to be in anatomical alignment with no signs of fracture complication or loosening. PG Care Time/CCT Total # of Minutes Spent Total Time Spent with Patient: Total time spent is greater than 50% in coordination of care (as documented) at patient's floor/unit and/or counseling patient: Coding Level of Care Code 21593 Post Operative Follow-Up Diagnoses Status post total right knee replacement Z96.651
--- NOTE | 2023-12-03 09:04 | Discharge Summary ---
Date of Service December 03, 2023 Admission HPI (Per Admitting) . Patient is an 83-year-old gentleman who presents for follow-up of his knees. He is now about 7 months out from a left knee replacement doing well. He continues to be bothered by right knee pain and discomfort. Describes global pain. The more he is up and onto more it hurts. He is having more more difficulty doing things he enjoys like hunting up. He has an upcoming trip in January and he like to have his knee better by then. Describes global pain. Does swells more as the day goes on. Some nighttime discomfort. Admission Exam (Per Admitting) . Physical examination reveals a pleasant elderly male. Looks younger than his stated age. Examination of both knees with patient ambulates independently. Examination of the right knee reveals a fairly neutral alignment to his knee. Small knee effusion. Range of motion 0-1 25. No pain with hip motion. Does have some patellofemoral crepitance. Examination left knee reveals a well-healed incision. Knee alignment is anatomic. Mild swelling through range of motion 0-1 20. No instability. Principal Diagnosis Same as "Discharge Diagnosis" noted below under Discharge Instructions. Discharge Exam . On physical examination of the right knee, dressings in place, clean, dry, and intact. His leg is out in full extension. He has active plantarflexion dorsiflexion to the right ankle. +2 DP and PT pulses. Less than 2-second capillary refill. Normal sensation. Neurovascular intact. Discharge Data Procedures Performed Operation Date: 12/02/23 11:10 Actual Procedures p Right Total Knee Arthroplasty(Right) - Fred Del Toro MD Ordered Studies 12/02/23 05:00 US - OR guided needle placemen Routine Hospital Course (1) Status post total right knee replacement: On December 02, 2023 Anthony arrived at [facility] and underwent a right total knee arthroplasty without complications. He had a spinal anesthetic. Postoperatively, he was started on aspirin for DVT prophylaxis and transferred to the general orthopedic floor in stable condition. His hospital course was uneventful. On postoperative day #1, his vital signs are stable and his pain was well-controlled. He participated well with physical therapy working on ambulation and range of motion exercises. He was then discharged home in stable condition. He will follow-up with Dr. Del Toro in 2 weeks for postoperative care. PG Care Time/CCT Total # of Minutes Spent Total Time Spent with Patient: Total time spent is greater than 50% in coordination of care (as documented) at patient's floor/unit and/or counseling patient: Discharge Plan Discharge Items Patient Disposition: Home - Self-Care Reason For Visit: RIGHT KNEE REPLACEMENT Discharge Diagnosis: Right Knee Replacement Activity: Per Instructions section Weightbearing: Full weightbearing Non-emergency contact: Surgeon Call non-emergency contact if: you have any medication questions Follow-up/Referrals: Fran Ge MD [Primary Care Provider] - Diet: Regular Addtl Attending Provider Instructions: ACTIVITY RECOMMENDATIONS: Physical Therapy: * You will go to physical therapy three times each week for four to six weeks after your surgery in order to regain your knee range of motion and to retrain your knee to work properly. * It is just as important to make sure you are getting your knee perfectly straight as it is to regain your knee bend. * Taking a pain pill an hour before therapy can help you have a more productive and comfortable therapy session. Home Exercise: * You were shown a series of exercises (heel props, heel slides, etc.) in the hospital. Do these exercises three to four times each day including the exercises you were shown in physical therapy. Walking: * Get up and walk several times each day. For the first four weeks, try not to stand or walk for more than one hour at a time. If you do stand or walk for more than one hour, you will not hurt anything, but your knee and leg will likely swell. * As you feel comfortable, you may change from the walker or crutches to a cane and then to independent walking. MEDICATIONS: New Medicine: * You will likely be taking one or more of these medications: 1. Oxycodone - A quick and shorter-acting pain medication. Take one to two tablets every six hours to lessen your pain. 2. Aspirin - Thins your blood to lessen the chance of forming a blood clot. * The most common side effects of pain medicine and iron are nausea and constipation. If nausea or constipation is too much of a problem or if you have any quest ions about your new medicines or doses, call [facility] at [phone]. We will try to help you manage these issues. "VERY IMPORTANT TO READ AND REVIEW" Pain: * The immediate post-operative period after knee replacement surgery is often quite painful. * You are given a prescription for pain medicine. You should take it, as directed, when you need it, especially before physical therapy and before going to bed. Pain that interferes with sleep is very common and can last several months. * You will likely need pain medicine for the first four to six weeks. It will not stop all of the pain. The pain will lessen and as you feel better, you may change to milder pain medicine such as Tylenol. * The most common side effects of pain medicine are nausea and constipation, so don't take more than you need. SPECIAL CARE INSTRUCTIONS: TEDs/Elastic Stockings: * The white elastic stockings help limit swelling and prevent blood clots from forming in your legs. The more you wear them, the more they work. * Wear them for six weeks after knee replacement surgery and four weeks after partial knee replacement. Incision Site Care: * Remove dressing postoperative day 2 and then shower. Keep direct shower pressure off the incision site. * After showering, cover laura with dry gauze and change daily or more frequently if the dressing is getting saturated with drainage. * Use the JOHN stockings to hold dressing in place. DO NOT apply tape on the skin. * May completely stop using bandage if wound is dry and no drainage * Laura are removed between 2 and 3 weeks post-op. If your follow-up appointment is made before 2 weeks, please have your appointment re- scheduled. It is too early to remove the laura. Prevention of Infection: * Take antibiotics one hour before any dental cleaning, dental work, urological procedure, gastrointestinal procedure or any invasive surgery in order to prevent your new joint from getting infected. * You may get the antibiotics from the doctor performing the procedure or you may call our office at [phone] before and we will call in a prescript ion to the pharmacy of your choice. Things to Watch For: * Drainage from the incision site that occurs more than one week after your surgery. * Severely increased knee/leg pain or swelling. * Increased redness at the incision site. * Fever above 102 degrees Fahrenheit. * Unusual chest pain or shortness of breath. * Unusual pain or burning with urination. Call [facility] at [phone] with any of the above problems or if you have any questions about your medicines or recovery. FOLLOW UP VISIT: Make an appointment to see your doctor for approximately two weeks after surgery for a progress check and staple removal by calling the office at [phone]. Pending Studies at Discharge: No Stand-Alone Forms: [facility] - Opioid Pain Management, Smoking Cessation Medications and DC Order Prescriptions: Continued (DME) Wheeled Walker Misc See Rx Instructions .MEDSUPPLY Qty: 1 0RF Rx Instructions: As directed oxycodone 5 mg tablet 5 - 10 mg PO Q6 PRN (Reason: pain) Qty: 40 0RF Patient Comments: post op Rx Instructions: Take as needed for pain ondansetron 4 mg tablet,disintegrating 4 mg PO Q8 PRN (Reason: nausea) Qty: 20 1RF Patient Comments: post op Rx Instructions: Take as needed for nausea ketorolac 10 mg tablet 10 mg PO TID 5 Days Qty: 15 0RF Patient Comments: post op Rx Instructions: Take 3 times per day with food for 5 days to lessen pain and swelling. sennosides [Senokot] 8.6 mg tablet 8.6 mg PO BID 14 Days Qty: 28 0RF Patient Comments: pos top Rx Instructions: Take two times a day to prevent/treat constipation acetaminophen [Tylenol Extra Strength] 500 mg tablet 1,000 mg PO TID 30 Days Qty: 180 0RF Patient Comments: post op Rx Instructions: Take 3 times per day to lessen pain. aspirin [Lupe Low Dose Aspirin] 81 mg tablet,delayed release (DR/EC) 81 mg PO BID 45 Days Qty: 90 0RF Patient Comments: post op Rx Instructions: Take to prevent blood clots. cefadroxil 500 mg capsule 500 mg PO BID 7 Days Qty: 14 0RF Patient Comments: post op Rx Instructions: Take 1 cap twice a day to prevent infection omeprazole 20 mg capsule,delayed release(DR/EC) 20 mg PO QAM ferrous gluconate 324 mg (37.5 mg iron) tablet 324 mg PO QAM levothyroxine 75 mcg capsule 75 mcg PO QAM gabapentin 100 mg capsule 100 mg PO TID tamsulosin 0.4 mg capsule 0.4 mg PO BID multivitamin Tablet 1 tab PO QAM Stool Softener 50 mg Capsule 50 mg PO QAM Discharge Orders: Discharge Order (Routine); Ordered 12/03/23 Ordered By: Francisco Javier Daniel/Other Patient Handouts: DVT Post Op Prevention Admission Data Admit Date/Time: 12/02/23 14:08 Attending Provider: Fred Del Toro Admit Provider: Fred Del Toro Primary Care Provider: Fran Ge Other Interventions: Discharge Summary Assessment (RN) Last Done: 12/03/23 10:49
== END 2023-12-03 12:22 | disposition home or self-care (01) ==
LOC: 3N 09:41 → ASU 09:41